=== PATIENT | female | born 1985 | race Caucasian/White ===

== ENCOUNTER → 2020-10-23 12:43 | Outpatient (CLI) | payer OTHER, SELFPAY ==
--- NOTE | ~2020-10-23 | CT_ITS ---
EXAMINATION: CT abdomen pelvis w con EXAM DATE: 10/23/2020 13:10 INDICATION: Abd pain, pelvic pain and bloating. TECHNIQUE: Spiral CT of the abdomen and pelvis was performed following intravenous injection of 100 m L Omnipaque 350. Axial, coronal and sagittal images of the abdomen and pelvis were reviewed. The do se-length product (DLP) for this examination was 398.20 mGy-cm. The exposure was tailored according to patient size (auto mA exposure control), and iterative reconstruction (ASIR) was used as additiona l dose reduction technique. There is no prior study for comparison. FINDINGS: The liver, spleen, adrenal glands and pancreas are unremarkable. Gallbladder is unremarkab le. No biliary obstruction. Portal and splenic veins are patent. Kidneys enhance symmetrically. T here is no hydronephrosis. There is IUD which appears to be centrally located within the endometriu m, expected position. The bladder is unremarkable. There is no retroperitoneal or pelvic lymphadeno chinedu. The appendix is normal. The stomach and small bowel are unremarkable. There is expected amount of c olonic stool. No free intraperitoneal gas. The heart is normal in size. There are no pericardial or pleural effusions. The lung bases are unremarkable. The bones are unremarkable. IMPRESSION: 1. No acute intra-abdominal findings. Reviewed, dictated and finalized at location A.
== END ==
PROVIDERS: Visit Provider Emergency Medicine
DX: R10.9 Unspecified abdominal pain (principal)
CPT/HCPCS: 74177; Q9967

== ENCOUNTER → 2021-06-29 03:37 | Outpatient (CLI) | payer OTHER, SELFPAY ==
[2021-06-29 11:11] LABS: SARS-CoV-2 RNA PCR Negative
== END ==
PROVIDERS: PCP Emergency Medicine; Visit Provider Internal Medicine Gastroenterology
DX: Z01.812 Encounter for preprocedural laboratory examination (principal); Z20.822 Contact with and (suspected) exposure to COVID-19
CPT/HCPCS: C9803; U0003; U0005

== ENCOUNTER 2021-07-02 00:26 | Day surgery (SDC) | payer OTHER, SELFPAY ==
[2021-06-22 15:17] VITALS: BMI 21.4
--- NOTE | 2021-06-29 13:37 | P.CONGI_ITS ---
Assessment and Plan Assessment and plan (1) GERD (gastroesophageal reflux disease): Code(s): K21.9 - Gastro-esophageal reflux disease without esophagitis Status: Acute Assessment and Plan: EGD with possible biopsy or dilatation (2) Change in bowel habits: Code(s): R19.4 - Change in bowel habit Status: Acute Assessment and Plan: Colonoscopy with possible biopsy or polypectomy or cautery or injection of substances. GI Consult Note Consult date/time: 06/29/21 13:37 HPI: Stacie Davila is a 36 year old female who has been suffering from Some acid reflux. she also has at times a poor appetite. She denies dysphagia. She has had severe abdominal bloating not related to eating and she has early satiety. This is recently her some most severe symptoms. 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 There has been a change in her bowel habits tending to be constipated . Although she gets quite distended and uncomfortable she does not pass much gas and does not have excessive belching. Her father had gastric cancer from which he passed at age 50 , there is also a family history of pancreatic cancer in a grandparent and a paternal aunt had breast and uterine cancer Review of Systems Review of Systems: All systems reviewed & are unremarkable except as noted in HPI and below Meds Home Medications and Allergies Home Medications Medication Instructions Recorded Confirmed Type No Home Medications 06/22/21 07/02/21 History Allergies Allergy/AdvReac Type Severity Reaction Status Date / Time No Known Allergies Allergy Verified 07/02/21 06:23 Exam Resp: Auscultation: clear to auscultation bilaterally Cardio: Rate: regular rate Rhythm: regular rhythm GI: GI Palp: Yes Soft to palpation and No Tenderness to palpation present (GI)
--- NOTE | 2021-07-01 08:05 | WPDANESEPP ---
Anes - Eval Pre Procedure Procedure: Operation Date: 07/02/21 07:30 Proposed Procedures p Esophagogastroduodenoscopy & Colonoscopy - El Diggs MD Date/Time: 07/01/21 08:05 Surgeon: Dontae Pre Op Diagnosis: early satiety, bloating, abdominal pain Patient Data Age: 36 Gender: F Height: 1.75 m Weight: 65.9 kg Allergies Allergy/AdvReac Type Severity Reaction Status Date / Time No Known Allergies Allergy Verified 06/22/21 15:14 Home Medications Medication Instructions Recorded Confirmed Type No Home Medications 06/22/21 06/22/21 History Other studies: CT dtd 09/2020 for abd pain unremarkable. Patient hx anesthesia problems: none Family hx anesthesia problems: none Results Review: All pre-operative results and documents have been reviewed as part of the pre-operative evaluation. Exam Day of Procedure 07/01/21 08:05
[2021-07-02 06:24] VITALS: BP 123/62; PULSE 93; RESP 16; TEMP 36.1; O2SAT 100
[2021-07-02] MEDS: LACTATED RINGERS 1,000 ML 150 ML IV CONT (06:38)
--- NOTE | 2021-07-02 06:53 | WPDANESEFPP ---
Anes - Eval Final PreProcedure Day of Procedure 07/02/21 06:53 Patient weight: normal Heart: regular rate and rhythm Lungs: clear to auscultation and normal air movement Airway: Mallampati scale class II Neurological: alert and oriented Last oral intake: >/= 8 hours ASA classification: I Emergent: no Anesthetic plan: proceed Anesthesia type and monitoring: general GIVS and standard monitoring Results Review: All pre-operative results and documents have been reviewed as part of the pre-operative evaluation. Informed Consent: The patient's anesthetic plan and its attendant risks and benefits were discussed with the patient/family/POA. Questions were solicited and answers provided to the satisfaction of the patient/family/POA.
--- NOTE | 2021-07-02 07:50 | SUR.OPER ---
EGD: [id number] COLON: [id number]
[2021-07-02 08:04] VITALS: BP 87/58; PULSE 74; RESP 14; O2SAT 100
[2021-07-02 08:14] VITALS: BP 95/62; PULSE 74; RESP 17; O2SAT 100
[2021-07-02 08:24] VITALS: BP 95/65; PULSE 78; RESP 18; O2SAT 100
== END 2021-07-02 08:34 | disposition home or self-care (01) ==
PROVIDERS: PCP Emergency Medicine; Visit Provider Internal Medicine Gastroenterology
PROC: 0DJ08ZZ Inspection of Upper Intestinal Tract, Via Natural or Artificial Opening Endoscopic (ICD-10-PCS; CPT 43235; principal; 2021-07-02 07:30)
DX: R19.4 Change in bowel habit (principal); K51.40 Inflammatory polyps of colon without complications; D12.4 Benign neoplasm of descending colon; R14.0 Abdominal distension (gaseous); R68.81 Early satiety; R10.9 Unspecified abdominal pain; K21.9 Gastro-esophageal reflux disease without esophagitis
CPT/HCPCS: 45385; 43239; 87081; 88305; J2704; J7120

== ENCOUNTER → 2022-02-09 11:17 | Outpatient (CLI) | payer OTHER, SELFPAY ==
--- NOTE | ~2022-02-09 | MR_ITS ---
EXAMINATION: MR lumbar spine wo con DATE: 02/09/2022 12:11 INDICATION: Lumbago with sciatica presenting with left-sided low back pain and left-sided paresthesia s TECHNIQUE: Magnetic resonance imaging (MRI) of the lumbar spine was performed without intravenous con trast. Sequences included sagittal T2-weighted FSE, sagittal T2-weighted FS FSE, sagittal T1-weighted FSE, and axial T2-weighted FSE. COMPARISON: CT abdomen and pelvis dated 10/23/2020 FINDINGS: Alignment is normal. Vertebral body heights are normal. Small Schmorl's nodes along the inferior endp late of L1 and at along the endplates on both sides of the T11-T12 and T12-L1 disc spaces. Normal mar row signal. Disc desiccation and moderate disc height loss at L5-S1. There is an associated annular f issure and disc extrusion which will be further detailed below. The conus medullaris terminates at L2 . There is normal signal in the caudal spinal cord. Paravertebral soft tissues are unremarkable. The following disc levels are specifically discussed: T12-L1: The disc does not extend beyond the endplate margin. There is mild bilateral facet joint oste oarthritis. There is no neural foraminal stenosis. There is no central canal stenosis. L1-L2: Disc is minimally bulging. There is mild bilateral facet joint osteoarthritis. There is no saida ral foraminal stenosis. There is no central canal stenosis. L2-L3: Disc is minimally bulging. There is mild right and mild to moderate left facet joint osteoarth ritis. There is no neural foraminal stenosis. There is no central canal stenosis. L3-L4: Disc is minimally bulging. There is mild left and mild to moderate right facet joint osteoarth ritis. There is no neural foraminal stenosis. There is no central canal stenosis. L4-L5: Disc is mildly bulging. There is mild to moderate bilateral facet joint osteoarthritis. There is mild bilateral neural foraminal stenosis. There is no central canal stenosis. L5-S1: Disc is mildly bulging with superimposed annular fissure and left paracentral disc extrusion w hich measures 1.6 cm left to right, 9 mm craniocaudally and 9 mm AP. There is mild to moderate facet joint osteoarthritis. There is mild right and minimal left neural foraminal stenosis. There is mild c entral canal stenosis but with moderate narrowing of the left lateral recess with the extrusion exert ing mass effect upon the traversing left S1 nerve root. IMPRESSION: 1. Mild to moderate lumbosacral spondylosis with left paracentral disc extrusion which exerts mass ef fect upon the traversing left S1 nerve root. Correlate clinically for left-sided muscle weakness of p lantar flexion, sensory change of the lateral foot and small toe, and depressed ankle reflex. 2. Otherwise minimal spondylosis in the more cephalad lumbar spine. Reviewed, dictated and finalized at location A. IMPRESSION: 1. Mild to moderate lumbosacral spondylosis with left paracentral disc extrusio n which exerts mass effect upon the traversing left S1 nerve root. Correlate cl inically for left-sided muscle weakness of plantar flexion, sensory change of t he lateral foot and small toe, and depressed ankle reflex. 2. Otherwise minimal spondylosis in the more cephalad lumbar spine.
== END ==
PROVIDERS: PCP Emergency Medicine; Visit Provider Emergency Medicine
DX: M54.42 Lumbago with sciatica, left side (principal); M47.816 Spondylosis without myelopathy or radiculopathy, lumbar region
CPT/HCPCS: 72148

== ENCOUNTER → 2022-08-10 10:51 | Outpatient (CLI) | payer OTHER, SELFPAY ==
--- NOTE | ~2022-08-10 | MR_ITS ---
MRI of the lumbar spine Clinical History: Spondylolysis Technique: Axial T2-weighted images, and sagittal T1-weighted, T2-weighted, and T2 fat-sat images wer e acquired. COMPARISON: 02/09/2022 Findings: There is no fracture or subluxation of the lumbar spine. Vertebral bodies maintain normal h eight and alignment. No suspicious bone marrow signal abnormality identified. No spondylolysis noted. At L1-L2, L2-L3, L3-L4, L4-L5, there are mild facet joint degenerative changes. No significant disc b ulge or herniation at these levels. No spinal canal stenosis or neural foraminal narrowing at these l evels. At L5-S1, there is a prominent left paracentral disc extrusion, essentially unchanged from prior exam . There is associated left lateral recess stenosis and probable impingement of descending left-sided S1-S2 level nerve root. Neural foramina themselves are otherwise unremarkable with this level. Paravertebral soft tissues are unremarkable. Impression: Stable left paracentral disc extrusion at L5-S1, with left lateral recess stenosis and probable impin gement of the descending left-sided S1-S2 level nerve root. Reviewed, dictated and finalized at [facility]. Impression: Stable left paracentral disc extrusion at L5-S1, with left lateral recess steno sis and probable impingement of the descending left-sided S1-S2 level nerve vania [place]
--- NOTE | ~2022-08-10 | XR_ITS ---
Lumbosacral Spine: AP and lateral views, with neutral, flexion, and extension positioning. Clinical History: Pain Findings: The normal lordotic curve is maintained. The vertebral bodies and posterior elements are i ntact. No instability evident. The intervertebral disc spaces are preserved. Mild facet joint degener ative change present at L4-L5 and L5-S1. The sacroiliac joints are normally outlined. Impression: Facet joint degenerative change, as above. No fracture or subluxation. No spondylolysis seen. No instability evident. Reviewed, dictated and finalized at location M. Impression: Facet joint degenerative change, as above. No fracture or subluxation. No spondylolysis seen. No instability evident.
== END ==
PROVIDERS: PCP Neurological Surgery; Visit Provider Neurological Surgery
DX: M47.817 Spondylosis without myelopathy or radiculopathy, lumbosacral region (principal); M51.27 Other intervertebral disc displacement, lumbosacral region
CPT/HCPCS: 72110; 72148

== ENCOUNTER → 2022-12-16 13:36 | Outpatient (CLI) | payer OTHER, SELFPAY ==
--- NOTE | ~2022-12-16 | XR_ITS ---
EXAMINATION: XR lumbar spine 2-3V DATE: 12/16/2022 13:59 INDICATION: Other specified postprocedural states TECHNIQUE: Anteroposterior and lateral views of the lumbar spine, and cone-down lateral view of the l umbosacral junction were obtained. COMPARISON: 08/10/2022 FINDINGS: Bone alignment is normal. There is no fracture. The vertebral body heights are normal. Ther e is moderate loss of intervertebral disc space height at L5-S1. There is moderate facet joint osteoa rthritis at L4-5 and L5-S1. IMPRESSION: 1. Moderate lumbar spondylosis at L5-S1 without acute findings or significant interval change. Reviewed, dictated and finalized at location A. IMPRESSION: 1. Moderate lumbar spondylosis at L5-S1 without acute findings or significant i nterval change.
== END ==
PROVIDERS: PCP Neurological Surgery; Visit Provider Neurological Surgery
DX: Z98.890 Other specified postprocedural states (principal); M47.897 Other spondylosis, lumbosacral region
CPT/HCPCS: 72100

== ENCOUNTER 2025-01-13 00:17 | Day surgery (SDC) | payer OTHER, SELFPAY ==
[2024-12-28 15:02] VITALS: BMI 22.1
--- NOTE | 2025-01-13 10:50 | P.PNAN_ITS ---
Anes - Initial Pre Proc Eval Procedure: Operation Date: 01/13/25 12:30 Proposed Procedures p EGD & Diagnostic Colonoscopy - Gabriel Linn MD Date/Time: 01/13/25 10:50 Surgeon: Gabriel Linn MD Pre Op Diagnosis: Gastro-esophageal reflux disease without esophagit Patient Data Age: 39 Gender: F Height: 1.75 m Weight: 68.1 kg Allergies Allergy/AdvReac Type Severity Reaction Status Date / Time piperacillin (From Zosyn) AdvReac Mild Hives Verified 12/28/24 15:01 tazobactam (From Zosyn) AdvReac Mild Hives Verified 12/28/24 15:01 Home Medications ?Medication ?Instructions ?Recorded ?Confirmed ?Type No Home Medications 06/22/21 12/28/24 H istory Patient hx anesthesia problems: none Family hx anesthesia problems: none Results Review: All pre-operative results and documents have been reviewed as part of the pre- operative evaluation. [facility] Surgical History Surgical History (Updated 01/13/25 @ 10:50 by Nicola Ospina MD) History of appendectomy Social History Social History Smoking status: Never smoker Living arrangements: with family Spiritual care concerns: No Anes - Eval Final PreProcedure Day of Procedure 01/13/25 10:50 Patient weight: normal Heart: regular rate and rhythm Lungs: clear to auscultation Airway: Mallampati scale class II Neurological: alert and oriented Last oral intake: >/= 8 hours ASA classification: I Emergent: no Anesthetic plan: proceed Anesthesia type and monitoring: general GIVS and standard monitoring Results Review: All pre-operative results and documents have been reviewed as part of the pre- operative evaluation. Informed Consent: The patient's anesthetic plan and its attendant risks and benefits were discussed with the patient/family/POA. Questions were solicited and answers provided to the satisfaction of the patient/family/POA.
--- NOTE | 2025-01-13 10:52 | P.HP_ITS ---
History of Present Illness History of Present Illness Consent: Risks, benefits, and alternatives have been discussed and questions answered. Patient agrees to proceed with procedure. Chief complaint: Gastro-esophageal reflux disease without esophagit Narrative: Stacie Davila is a 39 year old female here for egd/colonoscopy- last one 2021 with colon polyp, egd normal. Her father had gastric cancer from which he passed at age 50 , there is also a family history of pancreatic cancer in a grandparent Review of Systems Review of Systems: All systems reviewed & are unremarkable except as noted in HPI and below PMFSH Past Medical History Medical History (Updated 01/13/25 @ 10:53 by Gabriel Linn MD) Adenomatous colon polyp Surgical History Surgical History (Updated 01/13/25 @ 10:50 by Nicola Ospina MD) History of appendectomy Social History Social History Smoking status: Never smoker Living arrangements: with family Spiritual care concerns: No Meds Home Medications and Allergies Home Medications ?Medication ?Instructions ?Recorded ?Confirmed ?Type No Home Medications 06/22/21 12/28/24 H istory Allergies Allergy/AdvReac Type Severity Reaction Status Date / Time piperacillin (From Zosyn) AdvReac Mild Hives Verified 12/28/24 15:01 tazobactam (From Zosyn) AdvReac Mild Hives Verified 12/28/24 15:01 Exam Const: General: comfortable and no acute distress HENMT: Face/Nose/Sinus: Normal nares present Eyes: General: appearance normal, both eyes and all related structures Neck: Neck: no JVD Resp: Auscultation: clear to auscultation bilaterally Cardio: Rate: regular rate Rhythm: regular rhythm GI: Inspection: non-distended GI Palp: Yes Soft to palpation Skin: General skin exam: normal color Neuro: Speech: normal speech Extrem: General: normal to inspection Psych: Mental Status: mental status grossly normal Assessment and Plan Assessment and plan (1) Adenomatous colon polyp: Code(s): D12.6 - Benign neoplasm of colon, unspecified Status: Acute Assessment and Plan: colonoscopy (2) GERD (gastroesophageal reflux disease): Code(s): K21.9 - Gastro-esophageal reflux disease without esophagitis Status: Acute Assessment and Plan: egd
[2025-01-13] MEDS: LACTATED RINGERS 1,000 ML 150 ML IV CONT (10:53)
[2025-01-13 10:55] VITALS: BP 126/84; PULSE 103; RESP 20; TEMP 36.4; O2SAT 100; BMI 21.7
[2025-01-13 10:58] LABS: BEDSIDEPREGUCG Negative (Negative)
--- NOTE | 2025-01-13 10:58 | SUR.OPER ---
EGD:[id number] Colon:[id number]
--- NOTE | 2025-01-13 11:00 | S_PTH ---
PATIENT: Stacie Davila LOC: [facility] Zhou#:[id number] AGE/SX: 39/F ROOM: RE01/13/[address]: Gabriel Linn MD : 1985 BED: DIS: 01/13/2025 SPEC #: [id number] RECD: 01/13/25 11:33 STATUS: TREVA REQ #: [id number] JERMAINE: 01/13/25 11:[address]: Gabriel Linn DEPT: [facility] Surgical RECD BY: Marianela Ayala ENTERED: 01/13/25 11:33 SP TYPE: Surgical OTHR DR: James Beck MD Tissues: A - Gastric Biopsy B - Colon Polypectomy Procedures: Hematoxylin and Eosin Stain Gross and Microscopic Level 4
[2025-01-13 11:17] VITALS: BP 88/67; PULSE 110; RESP 16; O2SAT 99
[2025-01-13 11:27] VITALS: BP 100/73; PULSE 84; RESP 16; O2SAT 100
[2025-01-13 11:37] VITALS: BP 100/65; PULSE 82; RESP 20; O2SAT 99
== END 2025-01-13 11:43 | disposition home or self-care (01) ==
PROVIDERS: Anesthesiology; PCP Emergency Medicine; Visit Provider Internal Medicine Gastroenterology
PROC: 0DJ08ZZ Inspection of Upper Intestinal Tract, Via Natural or Artificial Opening Endoscopic (ICD-10-PCS; CPT 45378; principal; 2025-01-13 12:30)
DX: Z12.11 Encounter for screening for malignant neoplasm of colon (principal); D12.5 Benign neoplasm of sigmoid colon; K64.8 Other hemorrhoids; K21.9 Gastro-esophageal reflux disease without esophagitis; Z98.890 Other specified postprocedural states; Z80.0 Family history of malignant neoplasm of digestive organs
CPT/HCPCS: 43239; 45380; 88305; J2003; J2704; J7120